=== PATIENT | female | born 2000 | race Hispanic/Latino ===

== ENCOUNTER 2022-09-24 14:49 | Outpatient (CLI) | payer MEDICAID | END 2022-09-24 14:50 | disposition home or self-care (01) | LOC: BICULT 14:49 | PROVIDERS: ATTEND Nurse Practitioner Women's Health | DX: N83.201 Unspecified ovarian cyst, right side (principal); N83.202 Unspecified ovarian cyst, left side | CPT/HCPCS: 76856 ==